=== PATIENT | female | born 1945 | race Caucasian/White ===

== ENCOUNTER 2017-04-10 14:56 | Outpatient (CLI) | payer MEDICARE ==
--- NOTE | 2017-04-11 12:33 | Mammography Report ---
DIGITAL SCREENING MAMMOGRAM: 04/10/2017 CLINICAL INDICATION: A 72-year-old with a personal history of left breast cancer status post lumpect amna and radiation therapy for screening. COMPARISON: 03/2016, 02/2015, 02/2014 TECHNIQUE: Routine CC and MLO projections were obtained of the breasts. FINDINGS: The breasts again demonstrate scattered fibroglandular densities bilaterally. Postoperati ve and post-treatment changes in the left breast are stable. Coarse and punctate, typically benign c alcifications are present. No suspicious masses, clustered microcalcifications, or regions of rom ectural distortion are identified. IMPRESSION: BENIGN FINDINGS. RECOMMENDATION: Routine annual screening unless otherwise clinically indicated. BIRADS CATEGORY 2 - BENIGN FINDINGS. STANDARD QUALIFYING STATEMENTS 1. This examination was reviewed with the aid of Computer-Aided Detection (CAD). 2. A negative or benign imaging report should not delay biopsy if clinically suspicious findings are present. Consider surgical consultation if warranted. More than 5% of cancers are not identified by i maging. 3. Dense breasts may obscure an underlying neoplasm. JOB #: [id number] EXT JOB #:[id number]
== END 2017-04-10 14:57 | disposition home or self-care (01) ==
LOC: DI 14:56
PROVIDERS: ATTEND Physician Assistant
DX: Z12.31 Encounter for screening mammogram for malignant neoplasm of breast (principal); Z85.3 Personal history of malignant neoplasm of breast
CPT/HCPCS: 77067

== ENCOUNTER 2018-05-31 12:59 | Outpatient (CLI) | payer MEDICARE | END 2018-05-31 13:00 | disposition EMS.NT | LOC: EMS 12:59 | PROVIDERS: ATTEND Surgery | DX: S01.81XA Laceration without foreign body of other part of head, initial encounter (principal); W01.198A Fall on same level from slipping, tripping and stumbling with subsequent striking against other object, initial encounter; Y93.01 Activity, walking, marching and hiking; Y92.481 Parking lot as the place of occurrence of the external cause ==

== ENCOUNTER 2018-05-31 13:41 | Emergency (ER) | payer MEDICARE ==
--- NOTE | 2018-05-31 15:01 | ED Physician Documentation ---
PD HPI HEAD INJURY - Stated complaint Stated Complaint: WRIST PX/FALL - Chief complaint Chief Complaint: Trauma Hd/Nk - History obtained from History obtained from: Patient - History of Present Illness Mechanism of head injury: Fell (Simple trip and fall at 1 PM injuring her left wrist and she also has a small cut on the left forehead. Tetanus is up-to-date. No loss of consciousness or headache or any pain at this juncture.) Review of Systems Constitutional: reports: Reviewed and negative Nose: reports: Reviewed and negative Throat: reports: Reviewed and negative Cardiac: reports: Reviewed and negative PD PAST MEDICAL HISTORY - Past Medical History Past Medical History: Yes Cardiovascular: Hypertension Endocrine/Autoimmune: Type 2 diabetes - Past Surgical History Past Surgical History: No - Present Medications Home Medications: Ambulatory Orders Medication Instructions Recorded Confirmed RX: Aspirin Chewable [[facility] [place] 81 05/31/18 Aspirin] RX: Lisinopril 40 mg PO 05/31/18 RX: metFORMIN [Glucophage] 1,000 05/31/18 - Allergies Allergies/Adverse Reactions: Allergies Allergy/AdvReac Type Severity Reaction Status Date / Time No Known Drug Allergies Allergy Verified 05/31/18 13:50 - Social History Does the pt smoke?: No Smoking Status: Never smoker Does the pt drink ETOH?: Yes Does the pt have substance abuse?: No - Immunizations Immunizations are current?: No PD ED PE NORMAL - Vitals Vital signs reviewed: Yes - General General: Alert and oriented X 3, No acute distress - HEENT HEENT: PERRL, EOMI, Other (There is a shallow 5 mm tiny laceration on the left supraorbital rim. No underlying bony tenderness.) - Neck Neck: Supple, no meningeal sign, No bony TTP - Cardiac Cardiac: RRR, No murmur - Respiratory Respiratory: No respiratory distress, Clear bilaterally - Abdomen Abdomen: Non tender - Extremities Extremities: Other (There is a little swelling of the left dorsal lateral wrist but there is no corresponding tenderness. In contrast to the nurse's notes there is no deformity. She has full range of motion there.) - Neuro Neuro: Alert and oriented X 3, Normal speech Eye Opening: Spontaneous Motor: Obeys Commands Verbal: Oriented GCS Score: 15 - Psych Psych: Normal mood, Normal affect Results - Vitals Vitals: Vital Signs - 24 hr 11/25/18 11/25/18 13:45 15:05 Temperature 36.5 C 36.4 C L Heart Rate 87 78 Respiratory 20 18 Rate Blood Pressure 215/108 H 190/91 H O2 Saturation 96 95 Oxygen O2 Source Room air - Rads (name of study) L wrist 4v XR Radiology: EMP read contemporaneously (NAD) PD MEDICAL DECISION MAKING - ED course ED course: We discussed CT scanning of her head which I recommended given her advanced age, but there are no hard signs of head injury, no headache or loss of consciousness. She refused cranial imaging. Departure - Departure Disposition: 01 Home, Self Care Clinical Impression: Laceration Condition: Good Record reviewed to determine appropriate education?: Yes Instructions: ED Laceration Small Superf No Sutr Comments: As discussed, return if you develop a headache, vomiting, or other new symptoms. Your blood pressure was elevated today on check into the emergency department. This does not mean that you have hypertension, it is a common phenomenon to come to the emergency department and have elevated blood pressure. I recommend that you see your primary care physician within the week to have it rechecked when you are feeling better. Discharge Date/Time: 05/31/18 15:08
--- NOTE | 2018-05-31 15:02 | XRAY Report ---
Reason: fall Procedure Date: 05/31/2018 Accession Number: [id number] / [id number] Procedure: XR - Wrist 4 View LT CPT Code: FULL RESULT: EXAM: LEFT WRIST RADIOGRAPHY EXAM DATE: 05/31/2018 02:01 PM. CLINICAL HISTORY: Fall. COMPARISON: None available. TECHNIQUE: 4 views. FINDINGS: Bones: The bones are osteopenic. No acute fracture or dislocation visualized. Joints: There is narrowing of the radiocarpal joint space. Soft Tissues: Soft tissue swelling about the wrist. No radiopaque foreign body. IMPRESSION: Osteopenia. No acute fracture or dislocation visualized. RADIA
[2018-05-31 15:07] VITALS: BP 190/91
== END 2018-05-31 15:08 | disposition home or self-care (01) ==
LOC: ED 13:41
DX: S01.81XA Laceration without foreign body of other part of head, initial encounter (principal); W18.09XA Striking against other object with subsequent fall, initial encounter; Y92.481 Parking lot as the place of occurrence of the external cause; R22.32 Localized swelling, mass and lump, left upper limb; I10 Essential (primary) hypertension; E11.9 Type 2 diabetes mellitus without complications
CPT/HCPCS: 99283

== ENCOUNTER 2018-06-25 08:02 | Outpatient (CLI) | payer MEDICARE ==
--- NOTE | 2018-06-26 08:35 | Mammography Report ---
Reason: ANNUAL SCREENING Procedure Date: 06/25/2018 Accession Number: [id number] / [id number] Procedure: BRENDA - Screening Mammo w/Ray CPT Code: FULL RESULT: EXAM: Screening Mammo w/Ray DATE: 06/25/2018 8:47 AM CLINICAL HISTORY: Personal history of treated left breast cancer status post lumpectomy and radiation. Prior history of excisional biopsy right breast. Screening. TECHNIQUE: Bilateral CC and MLO views were obtained. COMPARISON: 04/10/2017 through 02/21/2014 FINDINGS: The breasts demonstrate scattered fibroglandular densities bilaterally. Left breast: There are stable operative changes status post lumpectomy from the lower inner quadrant. There are no suspicious masses, calcifications or areas of nonoperative distortion. Right breast: There is stable operative changes status post excisional biopsy from the superior breast, middle depth. There are no suspicious masses, calcifications or areas of distortion. IMPRESSION: Benign findings RECOMMENDATION: Routine annual screening unless otherwise clinically indicated. BI-RADS CATEGORY 2: Benign findings STANDARD QUALIFYING STATEMENTS: 1. This examination was not reviewed with the aid of Computer-Aided Detection (CAD). 2. A negative or benign imaging report should not preclude biopsy if clinically suspicious findings are present. 3. Dense breasts may obscure an underlying neoplasm. 4. This examination was reviewed with the aid of 3D breast imaging (tomosynthesis).
== END 2018-06-25 08:03 | disposition home or self-care (01) ==
LOC: DI 08:02
PROVIDERS: ATTEND Physician Assistant
DX: Z12.31 Encounter for screening mammogram for malignant neoplasm of breast (principal); Z08 Encounter for follow-up examination after completed treatment for malignant neoplasm; Z85.3 Personal history of malignant neoplasm of breast
CPT/HCPCS: 77063; 77067

== ENCOUNTER 2018-09-20 11:11 | Outpatient (CLI) | payer MEDICARE ==
--- NOTE | 2018-09-20 15:10 | XRAY Report ---
Reason: PNEUMONIA Procedure Date: 09/20/2018 Accession Number: [id number] / [id number] Procedure: XR - Chest 2 View X-Ray CPT Code: 38208 FULL RESULT: EXAM: CHEST RADIOGRAPHY EXAM DATE: 09/20/2018 11:28 AM. CLINICAL HISTORY: PNEUMONIA. COMPARISON: None. TECHNIQUE: 2 views. FINDINGS: Lungs/Pleura: No focal opacities evident. No pleural effusion. No pneumothorax. Normal volumes. Mediastinum: Heart and mediastinal contours are unremarkable. Other: Left breast/axillary surgical clips. IMPRESSION: No acute cardiopulmonary abnormality. RADIA
== END 2018-09-20 11:12 | disposition home or self-care (01) ==
LOC: DI 11:11
PROVIDERS: ATTEND Specialist
DX: J18.9 Pneumonia, unspecified organism (principal)
CPT/HCPCS: 71046

== ENCOUNTER 2019-08-12 14:38 | Outpatient (CLI) | payer MEDICARE ==
--- NOTE | 2019-08-24 15:19 | Mammography Report ---
Reason: ROUTINE MAMMO Procedure Date: 08/12/2019 Accession Number: [id number] / [id number] Procedure: BRENDA - Screening Mammo w/Ray CPT Code: Final Report FULL RESULT: EXAM: Screening Mammo w/Ray DATE: 08/12/2019 3:51 PM CLINICAL HISTORY: Screening encounter. History of early menses. Personal history of breast cancer, endometrial cancer and ovarian cancer. The patient is status post left breast lumpectomy in 2010 with radiation therapy. TECHNIQUE: (B) - Bilateral CC and MLO views were obtained. Right laterally exaggerated CC view is obtained. COMPARISON: 06/25/2018 through 02/21/2014. PARENCHYMAL PATTERN: (A) - The breast(s) demonstrate(s) scattered fibroglandular densities. FINDINGS: Posttreatment changes in the left breast are stable. There are coarse typically benign calcifications. There are no suspicious masses, calcifications, or areas of distortion. IMPRESSION: Benign findings. BI-RADS category 2. RECOMMENDATION: (ANNUAL) - Recommend routine annual screening mammography. BI-RADS CATEGORY: (2) - Benign Findings. STANDARD QUALIFYING STATEMENTS: 1. This examination was not reviewed with the aid of Computer-Aided Detection (CAD). 2. A negative or benign imaging report should not preclude biopsy if clinically suspicious findings are present. 3. Dense breasts may obscure an underlying neoplasm. 4. This examination was reviewed with the aid of 3D breast imaging (tomosynthesis).
== END 2019-08-12 14:39 | disposition home or self-care (01) ==
LOC: DI 14:38
DX: Z12.31 Encounter for screening mammogram for malignant neoplasm of breast (principal); Z85.3 Personal history of malignant neoplasm of breast; Z85.42 Personal history of malignant neoplasm of other parts of uterus; Z85.43 Personal history of malignant neoplasm of ovary; Z92.3 Personal history of irradiation
CPT/HCPCS: 77063; 77067

== ENCOUNTER 2020-05-17 12:38 | Outpatient (CLI) | payer MEDICARE ==
--- NOTE | 2020-05-17 17:27 | CT Report ---
PROCEDURE: LOWER EXTREMITY WO - LT INDICATIONS: FOOT,HEEL PAIN TECHNIQUE: Noncontrast 3 mm axial sections acquired of the left ankle, with coronal and sagittal reformats. COMPARISON: None. FINDINGS: Image quality: Excellent. Bones: Acute fracture identified. Numerous corticated chronic appearing loose bodies versus ununited osteophytes adjacent to the tip of the lateral malleolus. Tiny os navicular also incidentally noted. Hindfoot and midfoot joint degeneration is present. Scattered subchondral sclerosis and spurring. Soft tissues: Mild circumferential subcutaneous edema. Thickened appearance of the Achilles tendon w ith adjacent fluid IMPRESSION: Thickened appearance of the Achilles tendon, with adjacent fluid in keeping with probable partial rup ture and tendinopathy. Technically, these findings are age-indeterminate. Recommend clinical correlat ion. Further evaluation could be performed with dedicated ankle MRI as warranted. Diffuse hindfoot and midfoot degenerative changes. Posterior and plantar spurring. Reviewed by: Goran Wolf MD on 05/17/2020 5:26 PM PST Approved by: Goran Wolf MD on 05/17/2020 5:26 PM PST Station ID: [id number]
== END 2020-05-17 12:39 | disposition home or self-care (01) ==
LOC: DI 12:38
PROVIDERS: ATTEND Physician Assistant Medical
DX: M19.072 Primary osteoarthritis, left ankle and foot (principal); M77.32 Calcaneal spur, left foot

== ENCOUNTER 2020-07-20 16:06 | Outpatient (CLI) | payer MEDICARE ==
--- NOTE | 2020-07-21 08:16 | MRI Report ---
PROCEDURE: Ankle LT W/O INDICATIONS: PARTIAL ACHILLES TEAR TECHNIQUE: Noncontrast sagittal T1 spin echo and T2 fast spin echo with fat saturation, axial proton density fas t spin echo and T2 fast spin echo with fat saturation, coronal T1 spin echo and T2 fast spin echo wit h fat saturation through the ankle/hindfoot. COMPARISON: None. FINDINGS: Image quality: Excellent. Bones and joints: No bone marrow contusions or fractures. No hindfoot coalitions. No osteochondral injuries of the talar dome. Mild osteoarthritic changes are noted throughout midfoot and hindfoot vasiliy ints. No pathologic joint effusions. There is mild ankle soft tissue swelling and edema surrounding ankle joint. Medial structures: The posterior tibialis, flexor digitorum longus, and flexor hallucis longus tendo ns are intact. The posterior tibial neurovascular bundle appears normal within the tarsal tunnel, wi thout extrinsic mass effect. The deep layer (anterior and posterior tibiotalar ligaments) and superf icial layer (tibionavicular, tibiospring, and tibiocalcaneal ligaments) of the deltoid ligament appea r normal. The spring ligament components (superomedial calcaneonavicular, medioplantar oblique calca neonavicular, and inferoplantar longitudinal ligaments) are intact. Lateral structures: The anterior talofibular, calcaneofibular, and posterior talofibular ligaments a ppear attenuated with intrasubstance T2 hyperintense signal suggestive of chronic sprain/low-grade pa rtial thickness tear. More superiorly, the anterior tibiofibular ligament is also thickened. The post erior tibiofibular ligaments appears normal, as is the intermalleolar ligament. The tibiofibular syn desmosis is normal in width at 2 mm or less. The peroneus longus and brevis tendons demonstrate norm al location and morphology. Adjacent bony peroneal tubercle and retrotrochlear prominence are normal in size. The sinus tarsi demonstrates normal fatty signal, without edema, fibrosis, or cyst formati on. Visualized sinus tarsi components (cervical ligament, interosseous talocalcaneal ligament, roots of the inferior extensor retinaculum) appear normal. Anterior structures: The tibialis anterior, extensor hallucis longus, and extensor digitorum longus tendons appear intact. Posterior and plantar structures: Thickened distal 5.7 cm segment of Achilles tendon to its insertion on posterior calcaneus is seen with attenuated appearance of most distal 2 cm segment of Achilles te ndon consistent with tendinosis and moderate grade partial thickness tear. No full-thickness Achilles tendon rupture. Medial and lateral bands of the plantar fascia are of normal thickness. No abductor digiti quinti muscle atrophy to suggest [place] neuropathy. IMPRESSION: 1. Tendinosis and moderate grade partial-thickness tear involving distal Achilles tendon as above. No full-thickness Achilles tendon rupture. Rest of the ankle tendons are intact. 2. Plantar aponeurosis is intact. 3. Mild ankle and hindfoot joint osteoarthritis. No marrow edema. No fracture or dislocation. Soft ti ssue swelling and edema surrounding the ankle joint is seen. 4. Chronic appearing sprain/low-grade partial thickness tear involving anterior and posterior talofib ular ligament and calcaneofibular ligament. Chronic appearing sprain/partial thickness tear also note d involving anterior tibiofibular ligament. Medial ankle ligaments are intact. Reviewed by: Jamison Lang MD on 07/21/2020 8:15 AM PST Approved by: Jamison Lang MD on 07/21/2020 8:15 AM PST Station ID: [id number]
== END 2020-07-20 16:07 | disposition home or self-care (01) ==
LOC: DI 16:06
PROVIDERS: ATTEND Physician Assistant Medical
DX: S86.012A Strain of left Achilles tendon, initial encounter (principal); S93.412A Sprain of calcaneofibular ligament of left ankle, initial encounter; S93.492A Sprain of other ligament of left ankle, initial encounter; S93.432A Sprain of tibiofibular ligament of left ankle, initial encounter; M19.072 Primary osteoarthritis, left ankle and foot

== ENCOUNTER 2020-09-11 12:58 | Outpatient (CLI) | payer MEDICARE ==
--- NOTE | 2020-09-12 11:34 | Mammography Report ---
BILATERAL DIGITAL SCREENING MAMMOGRAM 3D/2D: 09/11/2020 CLINICAL: Routine screening. Personal history of left breast cancer. Comparison is made to exams dated: 08/12/2019 mammogram, 06/25/2018 mammogram, 04/10/2017 mammogram, mammogram - [facility], 02/27/2015 mammogram, and 02/21/2014 mammogram - [facility] [place] [facility]. There are scattered fibroglandular elements in both breasts. There are benign calcifications in both breasts. There also are benign post operative findings in th e left breast. No significant masses, calcifications, or other findings are seen in either breast. There has been no significant interval change. IMPRESSION: BENIGN There is no mammographic evidence of malignancy. A 1 year screening mammogram is recommended. This exam was interpreted at Station ID: [id number]. NOTE: For mammograms, a report in lay terms will be sent to the patient. Approximately 15% of breast malignancies will not be visualized mammographically. In the management of a palpable breast mass, a negative mammogram must not discourage biopsy of a clinically suspicious lesion. Electronically Signed By: Eric Salvador M.D. ddp/penrad:09/11/2020 15:03:16 ACR BI-RADS Category 2: Benign Finding(s) 3342F PARENCHYMAL PATTERN: (A) - The breast(s) demonstrate(s) scattered fibroglandular densities. BI-RADS CATEGORY: (2) - 2 RECOMMENDATION: (ANNUAL) - Recommend routine annual screening mammography. [id number] 1 year screening LATERALITY: (B)
== END 2020-09-11 12:59 | disposition home or self-care (01) ==
LOC: DI.N 12:58
DX: Z12.31 Encounter for screening mammogram for malignant neoplasm of breast (principal); Z85.3 Personal history of malignant neoplasm of breast

== ENCOUNTER 2021-10-01 14:10 | Outpatient (CLI) | payer MEDICARE ==
--- NOTE | 2021-10-02 08:32 | Mammography Report ---
BILATERAL DIGITAL SCREENING MAMMOGRAM 3D/2D: 10/01/2021 CLINICAL: Routine screening. Personal history of left breast cancer. Comparison is made to exams dated: 09/11/2020 mammogram, 08/12/2019 mammogram, 06/25/2018 mammogram, 04/10/2017 mammogram, 03/27/2016 mammogram - [facility], and 02/27/2015 mammogram - [facility]. There are scattered fibroglandular elements in both breasts. There are benign calcifications in both breasts. There also are benign post operative findings in th e left breast. No significant masses, calcifications, or other findings are seen in either breast. There has been no significant interval change. IMPRESSION: BENIGN There is no mammographic evidence of malignancy. A 1 year screening mammogram is recommended. This exam was interpreted at Station ID: [id number]. NOTE: For mammograms, a report in lay terms will be sent to the patient. Approximately 15% of breast malignancies will not be visualized mammographically. In the management of a palpable breast mass, a negative mammogram must not discourage biopsy of a clinically suspicious lesion. Electronically Signed By: Gary Mojica M.D., jr/johnathan:10/01/2021 15:25:32 ACR BI-RADS Category 2: Benign Finding(s) 3342F PARENCHYMAL PATTERN: (A) - The breast(s) demonstrate(s) scattered fibroglandular densities. BI-RADS CATEGORY: (2) - 2 RECOMMENDATION: (ANNUAL) - Recommend routine annual screening mammography. [id number] 1 year screening LATERALITY: (B)
== END 2021-10-01 14:11 | disposition home or self-care (01) ==
LOC: DI.N 14:10
DX: Z12.31 Encounter for screening mammogram for malignant neoplasm of breast (principal); Z85.3 Personal history of malignant neoplasm of breast

== ENCOUNTER 2021-12-05 14:20 | Outpatient (CLI) | payer MEDICARE ==
--- NOTE | 2021-12-05 16:55 | DEXA Report ---
PROCEDURE: Dexa Spine and/or Hip INDICATIONS: POST MENOPAUSAL TECHNIQUE: Dual energy x-ray absorptiometry (DXA) was performed on a [employer]. Regions measur ed are the AP Spine, femoral neck, and if needed forearm. COMPARISON: None. FINDINGS: Lumbar Spine: Bone Mineral Density 1.542 g/cm/cm,T score 2.8, normal Left Hip: Bone Mineral Density 1.002 g/cm/cm,T score 0.0, normal Left Femoral Neck: Bone Mineral Density 0.90 g/cm/cm, T score -0.9, normal (T score greater or equal to -1.0: NORMAL) (T score from -1.1 to -2.4: OSTEOPENIA) (T score less than or equal to -2.5 to: OSTEOPOROSIS) Impression: Normal bone mineral density. Patients with diagnosis of osteoporosis or osteopenia should have regular bone mineral density assess ment. For those eligible for Medicare, routine testing is allowed once every 2 years. Testing frequ ency can be increased for patients who have rapidly progressing disease or for those who are receivin g medical therapy to restore bone mass. Reviewed by: Judith Dickerson MD, PhD on 12/05/2021 4:53 PM PDT Approved by: Judith Dickerson MD, PhD on 12/05/2021 4:53 PM PDT Station ID: [id number]
== END 2021-12-05 14:21 | disposition home or self-care (01) ==
LOC: DI 14:20
PROVIDERS: ATTEND Internal Medicine
DX: N95.8 Other specified menopausal and perimenopausal disorders (principal)

== ENCOUNTER 2022-11-11 14:37 | Outpatient (CLI) | payer MEDICARE ==
--- NOTE | 2022-11-12 09:18 | Mammography Report ---
BILATERAL DIGITAL SCREENING MAMMOGRAM 3D/2D: 11/11/2022 CLINICAL: Routine screening. Personal history of left breast cancer. Comparison is made to exams dated: 10/01/2021 mammogram, 09/11/2020 mammogram, 08/12/2019 mammogram, 06/07 mammogram, 04/10/2017 mammogram, and 03/27/2016 mammogram - [facility]. There are scattered areas of fibroglandular density in both breasts (category b / 25%-50% glandular t issue). There are benign calcifications in both breasts. There also are benign post operative findings in th e left breast. No significant masses, calcifications, or other findings are seen in either breast. There has been no significant interval change. IMPRESSION: BENIGN There is no mammographic evidence of malignancy. A 1 year screening mammogram is recommended. This exam was interpreted at Station ID: [id number]. NOTE: For mammograms, a report in lay terms will be sent to the patient. Approximately 15% of breast malignancies will not be visualized mammographically. In the management of a palpable breast mass, a negative mammogram must not discourage biopsy of a clinically suspicious lesion. Electronically Signed By: Josiah Marcelo M.D. at/johnathan:11/12/2022 07:29:26 letter sent: No_Letter ACR BI-RADS Category 2: Benign Finding(s) 3342F PARENCHYMAL PATTERN: (A) - The breast(s) demonstrate(s) scattered fibroglandular densities. BI-RADS CATEGORY: (2) - 2 Mammogram [id number] 1 year screening LATERALITY: (B)
== END 2022-11-11 14:38 | disposition home or self-care (01) ==
LOC: DI 14:37
DX: Z12.31 Encounter for screening mammogram for malignant neoplasm of breast (principal); Z85.3 Personal history of malignant neoplasm of breast

== ENCOUNTER 2023-11-14 14:03 | Outpatient (CLI) | payer MEDICARE ==
--- NOTE | 2023-11-17 09:30 | Mammography Report ---
BILATERAL DIGITAL SCREENING MAMMOGRAM 3D/2D: 11/14/2023 CLINICAL: Routine screening. Personal history of left breast cancer. Comparison is made to exams dated: 11/11/2022 mammogram, 10/01/2021 mammogram, 09/11/2020 mammogram, 2019 mammogram, and 06/25/2018 mammogram - [facility]. There are scattered areas of fibroglandular density in both breasts (category b / 25%-50% glandular t issue). There are benign calcifications in both breasts. There also are benign post operative findings in th e left breast. No significant masses, calcifications, or other findings are seen in either breast. There has been no significant interval change. IMPRESSION: BENIGN There is no mammographic evidence of malignancy. A 1 year screening mammogram is recommended. This exam was interpreted at Station ID: [id number]. NOTE: For mammograms, a report in lay terms will be sent to the patient. Approximately 15% of breast malignancies will not be visualized mammographically. In the management of a palpable breast mass, a negative mammogram must not discourage biopsy of a clinically suspicious lesion. Electronically Signed By: Kameron Velásquez M.D. [facility] [place]/penrad:11/14/2023 16:32:43 ACR BI-RADS Category 2: Benign Finding(s) 3342F PARENCHYMAL PATTERN: (A) - The breast(s) demonstrate(s) scattered fibroglandular densities. BI-RADS CATEGORY: (2) - 2 RECOMMENDATION: (ANNUAL) - Recommend routine annual screening mammography. [id number] 1 year screening LATERALITY: (B)
== END 2023-11-14 14:04 | disposition home or self-care (01) ==
LOC: DI 14:03
DX: Z12.31 Encounter for screening mammogram for malignant neoplasm of breast (principal); Z85.3 Personal history of malignant neoplasm of breast; R92.323 Mammographic fibroglandular density, bilateral breasts; R92.1 Mammographic calcification found on diagnostic imaging of breast

== ENCOUNTER 2023-12-22 14:47 | Outpatient (CLI) | payer MEDICARE ==
--- NOTE | 2023-12-22 16:23 | XRAY Report ---
PROCEDURE: Knee 3V RT INDICATIONS: RT KNEE PAIN TECHNIQUE: 3 views of the knee(s) were acquired. COMPARISON: None. FINDINGS: Bones: No fractures or dislocations. No suspicious bony lesions. Moderate to severe tricompartmen nathalie arthritic change slightly more prominent laterally. Periarticular osteophytes are present. No dis tinct erosions. Soft tissues: Mild knee joint effusion. No suspicious soft tissue calcifications or masses. 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 Reviewed by: Kami Yung MD on 12/22/2023 4:22 PM PDT Approved by: Kami Yung MD on 12/22/2023 4:22 PM PDT Station ID: [id number]
== END 2023-12-22 14:48 | disposition home or self-care (01) ==
LOC: DI.N 14:47
PROVIDERS: ATTEND Physician Assistant
DX: M17.11 Unilateral primary osteoarthritis, right knee (principal)

== ENCOUNTER 2024-01-27 15:08 | Outpatient (CLI) | payer MEDICARE ==
--- NOTE | 2024-01-27 18:56 | DEXA Report ---
PROCEDURE: Dexa Spine and/or Hip INDICATIONS: POST MENOPAUSAL TECHNIQUE: Dual energy x-ray absorptiometry (DXA) was performed on a [employer] System. Regions measur ed are the AP Spine, femoral neck, and if needed forearm. COMPARISON: 12/05/2021 FINDINGS: Lumbar Spine: Bone Mineral Density: 1.5-8 g/cm/cm,T score: 2.7. Since the most recent prior study, there has been a statistically significant decrease in bone mineral density by 0.9 percent. Left Femoral Neck: Bone Mineral Density: 0.874 g/cm/cm, T score: -1.2. Left Hip: Bone Mineral Density: 1.001 g/cm/cm,T score: -0.1. Since the most recent prior study, there has been a statistically significant decrease in bone mineral density by 0.1 percent. (T score greater or equal to -1.0: NORMAL) (T score from -1.1 to -2.4: OSTEOPENIA) (T score less than or equal to -2.5 to: OSTEOPOROSIS) Impression: By WHO criteria, this patient has low bone density (osteopenia). Interval statistical decrease in bone mineral density of the lumbar spine. Interval statistical decre ase in bone mineral density of the hip. Patients with diagnosis of osteoporosis or osteopenia should have regular bone mineral density assess ment. For those eligible for Medicare, routine testing is allowed once every 2 years. Testing frequ ency can be increased for patients who have rapidly progressing disease or for those who are receivin g medical therapy to restore bone mass. Reviewed by: Jamison Lang MD on 01/27/2024 6:55 PM PDT Approved by: Jamison Lang MD on 01/27/2024 6:55 PM PDT Station ID: [id number]
== END 2024-01-27 15:09 | disposition home or self-care (01) ==
LOC: DI 15:08
PROVIDERS: ATTEND Physician Assistant
DX: N95.8 Other specified menopausal and perimenopausal disorders (principal); M85.88 Other specified disorders of bone density and structure, other site